=== PATIENT | male | born 1975 | race Caucasian/White ===

== ENCOUNTER 2025-07-07 18:51 | Inpatient (IN) | payer MEDICARE, MEDICAID ==
[~2025-07-07] VITALS: Ht 172.7 cm; Wt 66.2 kg
[2025-07-07 20:03] LABS: PLATELET COUNT, AUTOMATED 291 10^3/uL (150-450)
[2025-07-07 20:32] LABS: ETHYL ALCOHOL (ETHANOL) < 0.003 % (0.000-0.010)
[2025-07-07 20:34] LABS: ALT/SGPT 14 U/L (7.0-40); AST/SGOT 21 U/L (<34); CALCIUM LEVEL 8.9 MG/DL (8.5-10.1); CARBON DIOXIDE LEVEL 26 MMOL/L (20-31); CHLORIDE LEVEL 108 MMOL/L (98-107); CREATININE FOR GFR 0.85 MG/DL (0.70-1.30); GLOMERULAR FILTRATION RATE > 90.0 (>60); POTASSIUM SERUM 4.1 MMOL/L (3.5-5.1); SALICYLATE LEVEL < 3.0 MG/DL (<30); SODIUM LEVEL 143 MMOL/L (136-145)
[2025-07-07 20:50] LABS: CK-MB VALUE MASS < 1.0 NG/ML (<3.6)
[2025-07-07 20:58] LABS: CPK CREATINE PHOSPHOKINASE 110 U/L (46-171)
[2025-07-07 21:57] LABS: CK-MB VALUE MASS < 1.0 NG/ML (<3.6)
[2025-07-07 21:58] LABS: CPK CREATINE PHOSPHOKINASE 110 U/L (46-171)
[2025-07-08] MEDS ORDERED: MOM 30 ML SUSPENSION UDC PO PRN (00:20)
[2025-07-08 01:02] LABS: AMPHETAMINES LEVEL URINE NEGATIVE (NEGATIVE); BARBITURATES URINE NEGATIVE (NEGATIVE); BENZODIAZEPINES URINE NEGATIVE (NEGATIVE); COCAINE METABOLITE URINE NEGATIVE (NEGATIVE); METHADONE URINE NEGATIVE (NEGATIVE); OPIATES URINE NEGATIVE (NEGATIVE); PHENCYCLIDINE URINE NEGATIVE (NEGATIVE)
[2025-07-08 01:03] LABS: CANNABINOIDS URINE POSITIVE (NEGATIVE)
[2025-07-08] MEDS: traZODone 50 MG TAB PO PRN (02:08)
[2025-07-08 02:27] VITALS: BP 117/79; TEMP 97.2; O2SAT 98
[2025-07-08] MEDS ORDERED: HOME MED LIST COMPLETE! XX SCH (09:25)
[2025-07-08] MEDS: NICOTINE 14 MG/24 HR TRANSDERMAL TD SCH (10:05)
[2025-07-09 06:33] VITALS: BP 141/88; TEMP 97.5; O2SAT 99
[2025-07-09] MEDS: LORazepam 0.5 MG TAB PO ONE (08:46)
[2025-07-09] MEDS: DIVALPROEX 125 MG TAB PO SCH (09:38)
[2025-07-09] MEDS: IBUPROFEN 400 MG TAB PO PRN (10:50)
[2025-07-09 15:29] VITALS: BP 145/93; TEMP 97.3; O2SAT 97
[2025-07-10] MEDS: ACETAMINOPHEN 325 MG TAB PO PRN (05:53)
[2025-07-10 06:52] VITALS: BP 125/78; TEMP 97.2; O2SAT 98
[2025-07-10 08:18] LABS: CHOLESTEROL LEVEL 155.0 MG/DL (<200); CHOLESTEROL RISK RATIO 5.65 (<5); LDL CHOLESTEROL 105.0 MG/DL (<100); NON-HDL-C 127.6 MG/DL; TRIGLYCERIDES LEVEL 113.0 MG/DL (<150)
[2025-07-10 08:21] LABS: ESTIMATED AVERAGE GLUCOSE 82.0 MG/DL (60-110)
[2025-07-10 15:49] VITALS: BP 145/87; TEMP 98.3; O2SAT 97
[2025-07-11 06:44] VITALS: BP 135/82; TEMP 97; O2SAT 98
[2025-07-11 14:50] VITALS: BP 127/73; TEMP 97.6; O2SAT 99
[2025-07-11] MEDS: traZODone 100 MG TAB PO PRN (21:49)
[2025-07-12 06:14] VITALS: BP 145/89; TEMP 97; O2SAT 100
[2025-07-12] MEDS: DIVALPROEX 250 MG TAB PO SCH (09:01)
[2025-07-12 15:59] VITALS: BP 122/81; TEMP 97.7; O2SAT 100
[2025-07-13 06:29] VITALS: BP 135/76; TEMP 98; O2SAT 100
[2025-07-13 13:18] LABS: CK-MB VALUE MASS 1.8 NG/ML (<3.6)
[2025-07-13 13:20] LABS: CPK CREATINE PHOSPHOKINASE 132 U/L (46-171); MB/CK RELATIVE INDEX 1.36 (< OR =4)
[2025-07-13 15:57] VITALS: BP 126/85; TEMP 97.5; O2SAT 97
[2025-07-13] MEDS: MAALOX 30 ML SUSP *UDC PO PRN (16:40)
[2025-07-14 06:39] VITALS: BP 138/78; TEMP 97.2; O2SAT 100
[2025-07-14] MEDS ORDERED: DULO1CAP4 PO (10:57)
[2025-07-14] MEDS ORDERED: NICO14PA TD (10:57)
[2025-07-14] MEDS ORDERED: TRAZ-257 PO (10:57)
[2025-07-14] MEDS ORDERED: DIVA-65 PO (10:57)
[2025-07-14] MEDS ORDERED: ARIP10TA63 PO (10:57)
== END 2025-07-14 12:24 | disposition home or self-care (01) | DRG 885 ==
LOC: M ED 18:51 → M ED INP 07-08 00:18 → M PSY 07-08 01:41
PROVIDERS: ADMIT Student in an Organized Health Care Education/Training Program; ATTEND Student in an Organized Health Care Education/Training Program
DX: F31.5 Bipolar disorder, current episode depressed, severe, with psychotic features (principal); R45.851 Suicidal ideations; F17.200 Nicotine dependence, unspecified, uncomplicated; F12.90 Cannabis use, unspecified, uncomplicated; F43.10 Post-traumatic stress disorder, unspecified